=== PATIENT | male | born 1945 | race Caucasian/White ===

== ENCOUNTER → 2016-12-10 | Outpatient (CLI) | payer MEDICARE ==
[~2016-12-10] MED LIST: ADVAIR 5001 DISK W/D PO; ASPIRIN PO; ASPIRIN81 MG PO; CENTRUM SILVER PO; COMBIVENT INH14.7 GM INH; DEPO-TESTOT200 MG/ML IM; DULCOLAX5 MG PO; FLEXALL PO; HYDROCODON-ACE1 EACH PO; IBUPROFEN PO; INHALER; LIDODERM30 EA TOP; LORTAB 10/500 T1 TAB PO; MULTI VITAMIN1 EACH PO; OSTEO BI-FLEX1 EAC2 PO; PEPCID AC PO; TRIFLEX PO; VITAMIN B-12250 MCG PO
--- NOTE | ~2016-12-10 | CT4 ---
[facility] A Service of [facility] RADIOLOGY TEXT RESULTS PATIENT: CHRIS ANGELA LOCATION: [facility] : 43 UNIT #: [id number] AGE: [address]: Nick Harvey MD SEX: M ORDER DR: [id number] [place] [id number] P MR#: [id number] Acc #: [id number] NAME: CHRIS ANGELA : 1945 SEX: M STUDY DATE/TIME: 12/10/2016 8:53 UNIT: [facility] ROOM: STUDY DESCRIPTION: CT Abd and Pelv Wo Cont Attending Physician: Nick Harvey M.D. Ordering Physician: Nick Harvey M.D. Primary Care Physician: Nick Harvey M.D. MEDICAL IMAGING REPORT This report is preliminary unless electronic signature is present. EXAM CT abdomen and pelvis without contrast INDICATIONS History of hernia surgery March 2016. Patient is unable to have normal bowel movements since surgery. Left lower quadrant abdominal pain since the surgery. PROCEDURE Unenhanced CT of the abdomen and pelvis. COMPARISON 07/28/2006 FINDINGS Abdomen without contrast: Mild emphysematous change in the lung bases. The liver, spleen, kidneys, adrenal glands, pancreas and gallbladder show no acute abnormality. Bowel loops are nondilated. There is moderate colonic stool burden. No abdominal fluid collection. Pelvis without contrast: Previous left inguinal hernia repair. Low attenuation fullness in the left lower quadrant measuring approximately 2.4 cm is favored to represent a plug from the hernia repair. There is no evidence for re-herniation. No fluid collection in the operative site. No pelvic mass or fluid. No aggressive appearing bone lesion. IMPRESSION 1. Status post left inguinal hernia repair, presumed using a plug. Correlate with operative history. There is no drainable fluid collection or significant inflammatory change seen in the operative bed. [facility] A Service of [facility] RADIOLOGY TEXT RESULTS PATIENT: CHRIS ANGELA LOCATION: [facility] : 43 UNIT #: [id number] AGE: [address]: Nick Harvey MD SEX: M ORDER DR: 2. Bowel loops are nondilated. 3. Moderate colonic stool burden. Dictated by... Jet Morrell M.D. THIS IS AN ELECTRONICALLY VERIFIED REPORT Jet Morrell M.D. at 12/10/2016 5:05 PM Aron TD: 12/10/2016 12:44 JOB #: [id number] MEDICAL IMAGING REPORT
== END | disposition home or self-care (01) ==
LOC: SCT 08:36
DX: K40.90 Unilateral inguinal hernia, without obstruction or gangrene, not specified as recurrent (principal); R10.32 Left lower quadrant pain; Z98.890 Other specified postprocedural states
CPT/HCPCS: 74176

== ENCOUNTER → 2017-04-15 | Day surgery (SDC) | payer MEDICARE ==
--- NOTE | ~2017-04-15 | OR ---
Unit #: [id number] #: [id number] Patient: CHRIS ANGELA [id number] [address] [place], [place] [address] [id number] O MR#: [id number] NAME: CHRIS ANGELA. ROOM: Date of Procedure: 04/15/2017 Admission Date: 04/15/2017 Surgeon: Tommie Ramirez M.D. : 1945 Attending Physician: Tommie Ramirez M.D. Primary Care Physician: Nick Harvey M.D. OPERATIVE REPORT PRIMARY CARE PHYSICIAN Nick Harvey M.D. PREOPERATIVE DIAGNOSES The patient has presented with a history of postprandial dyspepsia and retrosternal ascending heartburn. In addition, he also needs a surveillance colonoscopy having had personal history of colon polyps. PROCEDURES PERFORMED Upper gastrointestinal endoscopy and biopsy as well as colonoscopy up to cecum and terminal ileum with excellent preparation and good visualization. POSTOPERATIVE DIAGNOSES For upper endoscopy: 1. The patient had prepyloric antral moderate gastritis. 2. There was focal mild patchy erosive duodenitis. 3. Rest of the examination up to third part of duodenum was normal. A biopsy was obtained from the antrum for CLOtest. For colonoscopy: The patient had small internal hemorrhoids and scant sigmoid diverticula. Otherwise, examination was normal up to cecum and terminal ileum. The quality of the prep was excellent. RECOMMENDATIONS 1. Pantoprazole 40 mg p.o. daily. 2. Consider repeat colonoscopy in 5 years. 3. Follow up in the office in 3 months' time. SEDATION USED MAC. DESCRIPTION OF PROCEDURE Following detailed explanation of potential risks and complications of an upper endoscopy and a colonoscopy, namely perforation, bleeding, and complication related to sedation, the patient was brought to GI lab and laid in the left lateral decubitus position. Lubricated tip of the Olympus video upper endoscope was passed through the bite block into the proximal esophagus under direct vision. The entire esophageal mucosa was examined and appeared normal. Z-line was nicely demarcated, there being no esophagitis or hiatus hernia. The scope was then advanced into the gastric cavity and the latter was insufflated. Mucosa of the fundus, body, and antrum was examined and the patient was noted to have moderate prepyloric antral erythema erosions indicating diffuse antral gastritis Unit #: [id number] #: [id number] Patient: CHRIS ANGELA noted. Pylorus was intubated with visualization of the duodenal bulb. The latter was noted to have mild focal patchy erosive duodenitis. Second and third part of duodenum were normal. Upon withdrawal and retroflexion; incisura, cardia, and greater curve was examined and biopsy was obtained from the antrum for CLOtest. The scope was then withdrawn in the distal esophagus. The entire esophageal mucosa was examined all the way up to pharynx, no additional findings were noted. The examination table was then turned by 180 degrees and the patient positioned for a colonoscopy. A digital rectal examination was performed, which was normal. Lubricated tip of the Olympus video colonoscope was inserted through the anus and advanced under direct vision. The scope was advanced past rectosigmoid into descending colon. Scant small diverticula were noted in this area. The scope tip was then navigated all the way up to cecum with visualization of the ileocecal valve and the appendiceal orifice. Preparation was excellent with good visualization and photodocumentation was obtained. Last several inches of the terminal ileum were also visualized after intubation of the ileocecal valve and appeared normal. Successive segments of the colonic mucosa were examined upon withdrawal and appeared unremarkable. There being no polyps, mass lesions, or AVMs. Other than the scant diverticula seen earlier, the patient was also noted to have small internal hemorrhoids at the anal verge. The scope was then withdrawn and the patient returned to the recovery area. He tolerated the procedure without any postprocedure complications. Dictated by... Toño Pena/erika TD: 04/15/2017 16:56 JOB #: [id number] CC: Nick Harvey M.D. OPERATIVE REPORT Page 1 of 1 X Tommie Ramirez MD X PROCEDURE OPERATIVE NOTE
== END | disposition home or self-care (01) ==
LOC: COPS 12:10
DX: Z12.11 Encounter for screening for malignant neoplasm of colon (principal); K25.9 Gastric ulcer, unspecified as acute or chronic, without hemorrhage or perforation; K29.80 Duodenitis without bleeding; K64.8 Other hemorrhoids; K57.30 Diverticulosis of large intestine without perforation or abscess without bleeding; M19.90 Unspecified osteoarthritis, unspecified site; F17.210 Nicotine dependence, cigarettes, uncomplicated; Z86.010 Personal history of colon polyps; Z79.82 Long term (current) use of aspirin; Z79.899 Other long term (current) drug therapy; Z90.49 Acquired absence of other specified parts of digestive tract; Z98.890 Other specified postprocedural states
CPT/HCPCS: 43239; G0105; 87077; J2250